=== PATIENT | female | born 1985 | race Caucasian/White ===

== ENCOUNTER 2017-09-24 10:11 | Inpatient (IN) | payer OTHER, SELFPAY ==
[2017-09-24] MEDS: Lactated Ringer's 1,000 ML IV SCH ×2 (10:41→11:46)
[2017-09-24] MEDS ORDERED: Ondansetron HCl/PF 4 MG/2 ML Vial IVP PRN ×2 (10:54→12:54)
[2017-09-24] MEDS ORDERED: Promethazine HCl 25 MG/ML VIAL IM PRN ×2 (10:54→12:54)
[2017-09-24] MEDS ORDERED: CEFAZOLIN/Water 2 GM/20 ML SYRINGE SLOW IVP SCH (11:00)
[2017-09-24] MEDS ORDERED: Bicitra 30 ML UDCUP PO SCH (11:00)
[2017-09-24 11:02] VITALS: BMI 33.6
[2017-09-24 11:12] LABS: Hematocrit 39.7 % (36.0-47.0); Mean Platelet Volume 8.8 fL (7.4-10.4); Red Blood Cell (RBC) Count 4.29 mill/uL (4.20-5.40); White Blood Cell (WBC) Count 8.8 thou/uL (4.8-10.8)
[2017-09-24] MEDS: CEFAZOLIN/Water 2 GM/20 ML SYRINGE ONE (11:23)
[2017-09-24] MEDS ORDERED: Morphine PF 1 MG/ML SYR ONE (12:14)
[2017-09-24] MEDS ORDERED: PHENYLEPHRINE-NS 100 MCG/ML 10 ML SYRINGE ONE (12:14)
[2017-09-24] MEDS ORDERED: Oxytocin 10 UNITS/ML VIAL ONE (12:14)
[2017-09-24] MEDS ORDERED: Dexamethasone 4 mg/ml Vial ONE (12:14)
[2017-09-24] MEDS ORDERED: Ondansetron HCl/PF 4 MG/2 ML Vial ONE (12:14)
[2017-09-24] MEDS ORDERED: Ketorolac Tromethamine 30 MG/ML VIAL ONE (12:14)
[2017-09-24] MEDS ORDERED: Naloxone HCl 0.4 mg/ml Vial IV PRN (12:54)
[2017-09-24] MEDS ORDERED: Eucerin (Mineral Oil/Petrolatum,White) 30 gm Jar TOP PRN (12:54)
[2017-09-24] MEDS ORDERED: Promethazine HCl 25 MG SUPP PR PRN (12:54)
[2017-09-24] MEDS ORDERED: diphenhydrAMINE 50 MG/ML VIAL IVP PRN (12:54)
[2017-09-24] MEDS ORDERED: Naloxone HCl 0.4 mg/ml Vial IVP PRN ×2 (12:54)
[2017-09-24] MEDS ORDERED: Communication Order-Pharmacy FS SCH (13:00)
[2017-09-24] MEDS ORDERED: diphenhydrAMINE 25 MG CAP PO PRN (13:02)
[2017-09-24] MEDS ORDERED: Bisacodyl 10 MG SUPP PR PRN (13:02)
[2017-09-24] MEDS ORDERED: Adacel (T-DAP) 0.5 ML VIAL IM ONE (13:02)
--- NOTE | 2017-09-24 13:11 | ADD-OP ---
ADDENDUM I was present and scrubbed to assist the uncomplicated repeat with Dr. Charisse Thomas. Pl ease see her operative note for full details.
[2017-09-24] MEDS ORDERED: Lactated Ringer's 1,000 ML IV SCH (13:15)
[2017-09-24] MEDS ORDERED: LR w/ Pitocin 40 units/1000 ML BAG IV SCH (13:15)
--- NOTE | 2017-09-24 14:46 | OP ---
DATE OF SURGERY: 09/24/2017 PREOPERATIVE DIAGNOSES: 1. A 31-year-old white female G3, P2 at 40+ weeks gestation. 2. Prior section x2 for repeat. POSTOPERATIVE DIAGNOSES: 1. A 31-year-old white female G3, P2 at 40+ weeks gestation. 2. Prior section x2 for repeat. PROCEDURE PERFORMED: Repeat low transverse section without extension. SURGEON: Charisse Thomas M.D. CONDITIONING ROOM WORKER SURGEON: Carmina Dale M.D. ANESTHESIA: Spinal block. ESTIMATED BLOOD LOSS: 500 mL. COMPLICATIONS: None. COUNTS: Correct x2. ANTIBIOTICS: Two grams Ancef credit relationship manager to the OR. FINDINGS: 1. Male , vertex presentation, Apgars 9 and 9, weight pending at time of this dictation . Clear amniotic fluid noted. 2. Normal appearing fallopian tubes, uterus, and ovaries. 3. Clear urine present in Isabel catheter post procedure. DISPOSITION: To the recovery room stable. DESCRIPTION OF OPERATIVE PROCEDURE: The patient previously received informed consent in regards to surgery. She was taken back to the operating room where she received a spinal block without complic ations, placed in the supine position, prepped and draped in usual sterile fashion. PlexiPulses Fol ey catheter was placed at this time. A Pfannenstiel incision was made superior to the previous scar site due to the fact that the previous surgical incision site was just above the symphysis pubis. The fascia was nicked in the midline. Fascial incision was extended bilaterally using curved Franklin s cissors. The fascia was dissected superiorly and inferiorly off the rectus muscle bellies. The per itoneal cavity was entered. Peritoneal incision was extended. A large Jonatan O retractor was then placed. A 2 cm hysterotomy incision was made above the vesicouterine peritoneal fold and this was e xtended via finger fractionation. The baby was delivered in the vertex presentation. Mouth and elbert es was bulb suctioned on the abdomen. Cord was doubly clamped and cut and handed to the pediatric t eam in attendance. The usual cord blood was obtained and then the placenta was manually extracted. The uterus curetted of any remaining placental fragments with a dry laparotomy sponge. Hysterotomy incision was inspected. No extensions were noted. The hysterotomy incision was then closed, but # 1 Monocryl in running locking fashion. Good hemostasis was assured. The Jonatan O retractor was the n removed. The pelvis again was inspected, irrigated and hemostasis again confirmed along the hyste rotomy line. Rectus muscle and bellies were noted to be hemostatic prior to fascial closure. The f ascia was closed with 0 PDS suture x2 in running continuous fashion. Interrupted [id number] st itches of 3-0 plain gut were placed in the subcutaneous tissue for approximation. The skin was clos ed with alirio. The surgery was terminated. No anesthetic or surgical complications were noted.
[2017-09-24] MEDS: Ketorolac Tromethamine 30 MG/ML VIAL IVP PRN (19:25)
[2017-09-25] MEDS ORDERED: Acetaminophen/Codeine 30-300mg Tablet PO PRN (01:00)
[2017-09-25] MEDS: Docusate Calcium (SURFAK) 240 MG CAP PO SCH ×3 (02:12→20:27)
[2017-09-25] MEDS: Ketorolac Tromethamine 30 MG/ML VIAL IVP PRN (02:15)
[2017-09-25 05:25] LABS: Hematocrit 33.6 % (36.0-47.0); Mean Platelet Volume 8.2 fL (7.4-10.4); Red Blood Cell (RBC) Count 3.62 mill/uL (4.20-5.40); White Blood Cell (WBC) Count 11.2 thou/uL (4.8-10.8)
[2017-09-25] MEDS: Acetaminophen/Codeine 30-300mg Tablet PO PRN ×3 (08:22→17:26)
[2017-09-25] MEDS: Simethicone Chewable 80 MG TAB PO PRN ×2 (08:22→17:26)
[2017-09-25] MEDS: Prenatal Vitamin 1 TAB PO SCH (08:22)
[2017-09-25] MEDS: Ibuprofen 800 MG TAB PO SCH ×3 (08:23→20:27)
[2017-09-25] MEDS: CEFAZOLIN/Water 2 GM/20 ML SYRINGE ONE (08:24)
[2017-09-25] MEDS ORDERED: FLU VACC QS2017-18 36 mo. & older 0.5 ML SYRINGE IM ONE (09:00)
--- NOTE | 2017-09-25 10:52 | PDOC.PP ---
Post Progress Note Post Day #: 1 PO intake tolerated: yes Flatus: yes Ambulation: yes Vital Signs (12 hours) Temp Pulse Resp BP 09/25/17 08:00 98.3 F 74 20 101/63 09/25/17 07:55 98.3 F 74 20 09/25/17 05:00 98.3 F 76 20 09/25/17 00:00 98.3 F 76 20 Weight Weight 215 lb - Physical Examination General: NAD Cardiovascular: no m/r/g, RRR Respiratory: clear to auscultation bilaterally, non-labored breathing Abdominal: + bowel sounds, lochia, no distention, appropriately TTP Result Diagrams: 09/25/17 04:50 Additional Labs: Post Labs Blood Type O POSITIVE 09/24/17 10:43 Hep Bs Antigen Non-Reactive S/CO (NonReactive) 09/24/17 10:43 - Assessment/Plan doing well post op day 1 routine post op care possible d/c in AM
[2017-09-25] MEDS: Milk Of Magnesia 30 ML UDCUP PO PRN (20:26)
[2017-09-26] MEDS: Simethicone Chewable 80 MG TAB PO PRN (00:36)
[2017-09-26] MEDS: Acetaminophen/Codeine 30-300mg Tablet PO PRN ×3 (00:36→10:24)
[2017-09-26] MEDS: Ibuprofen 800 MG TAB PO SCH (05:42)
[2017-09-26 07:48] VITALS: BP 114/72; TEMP 97.9
--- NOTE | 2017-09-26 09:04 | PDOC.PP ---
Post Progress Note Post Day #: 2 Subjective: ready to go home Vital Signs (12 hours) Temp Pulse Resp BP 09/26/17 07:47 97.9 F 71 20 114/72 09/26/17 03:51 98.6 F 72 20 122/67 09/26/17 00:27 98.2 F 81 20 131/59 L Weight Weight 215 lb - Physical Examination General: NAD Cardiovascular: no m/r/g, RRR Respiratory: clear to auscultation bilaterally, non-labored breathing Abdominal: + bowel sounds, lochia, no distention, appropriately TTP Result Diagrams: 09/25/17 04:50 Additional Labs: Post Labs Blood Type O POSITIVE 09/24/17 10:43 Hep Bs Antigen Non-Reactive S/CO (NonReactive) 09/24/17 10:43 - Assessment/Plan post op day 2 d/c home alirio out pod 7 and 6 weeks post doing well
[2017-09-26] MEDS: Docusate Calcium (SURFAK) 240 MG CAP PO SCH (09:21)
[2017-09-26] MEDS: Prenatal Vitamin 1 TAB PO SCH (09:21)
[2017-09-26] MEDS: Milk Of Magnesia 30 ML UDCUP PO PRN (09:28)
== END 2017-09-26 11:51 | disposition home or self-care (01) | DRG 766 ==
LOC: L&D 10:11 → 3SW 14:50
PROVIDERS: ADMIT Obstetrics & Gynecology; ATTEND Obstetrics & Gynecology
PROC: 10D00Z1 Extraction of Products of Conception, Low, Open Approach (ICD-10-PCS; principal; 2017-09-24)
DX: O34.211 Maternal care for low transverse scar from previous cesarean delivery (principal); Z37.0 Single live birth; Z3A.40 40 weeks gestation of pregnancy
CPT/HCPCS: 36415; 85027; 86780; 86850; 86900; 86901; 87340; J1100; J1885; J2270; J2274; J2405; J2550; J2590